=== PATIENT | male | born 1940 | race Caucasian/White ===

== ENCOUNTER 2017-05-23 02:23 | Inpatient (IN) | payer MEDICARE, MEDICAID ==
[2017-05-23] VITALS (9 sets, daily range): BP systolic 122–159; BP diastolic 51–87; PULSE 78–96; RESP 16–24; O2SAT 96–100
[~2017-05-23] VITALS: Ht 175.3 cm; Wt 77.8 kg
[2017-05-23] MEDS ORDERED: 0.9% Sodium Chloride 1,000 ML IV ONE ×2 (02:46→07:45)
--- NOTE | 2017-05-23 02:46 | ED.REPORT ---
HPI-Abd Pain M 40 and Over Date of Service May 23, 2017 ED Provider: Christopher Richardson MD The pt is a 77 y/o male w/ a hx of hemoptysis, dementia, HTN, and type 2 diabetes presenting to the ED complaining of hematemesis tonight. [facility] after an episode of coffee-ground emesis. He was unaware of that and remains unaware of it. He denies abdominal pain nausea vomiting or any other complaint. He appears to be bed ridden but He reports still being able to ambulate on his own. Denies abdominal pain or nausea. Nursing Notes Stated Complaint: VOMITING Chief Complaint: Male Abdominal Pain Nursing Notes Reviewed: Yes Allergies: Coded Allergies: No Known Allergies (Unverified , 05/23/17) General Time Seen by MD: 02:45 Transferred From: group home Chief Complaint Other (Hematemesis ) Patient unaware of hematemesis and denies pain or other complaints Hx Obtained From: Patient, Framing Machine Tender ([facility]itentiary staff) Unable to Obtain Hx: Mental status Arrived By: Ambulance Sudden in Onset?: Yes Onset Occurred: 1 week ago Recent Healthcare: No recent doctor visit, No recent hospitalization Similar Sx Previous: No Past Medical History Past Medical History Hemoptysis HTN Type 2 diabetes Benign prostatic hyperplasia Dementia UTI Osteoarthritis Past Surgical History None reported Social History None reported Other Social History: Lives in [facility] Ambulatory Status Independent Review of Systems GI: Reports: Hematemesis, Denies: Abdominal pain, Nausea Complete sys rev & neg: except as marked. Physical Exam Initial Vital Signs Vital Signs (First) Date Time Temp Pulse Resp B/P Pulse Ox O2 Delivery O2 Flow Rate FiO2 05/23/17 02:34 36 96 16 144/60 96 Room Air Initial VS: Reviewed General/Constitutional: Awake, Alert, No acute distress Pt is wearing an incontinence garment Respiratory / Chest: Atraumatic, Breath sounds NL, Breath sounds = bilat, No respiratory distress Cardiovascular: Heart rate NL, Heart sounds NL Heart Rate / Rhythm: Positive: Irregular rhythm (and slow ) Lower Ext Edema: Positive: Bilateral 2+ Abdomen: Atraumatic, Soft, Non-tender Back: Atraumatic, Full range of motion Head / Eyes: Atraumatic, Normocephalic ENT: Airway patent Mouth: Positive: Mucous membranes dry Skin: Atraumatic, Color NL, No rash, Warm, Dry Neurologic: Oriented X3, Speech NL Upper Extremity / MS: Atraumatic, Full range of motion Lower Extremity / Pelvis / MS: Atraumatic, Full range of motion Psychiatric: Affect NL, Mood NL Interpretation & Diagnostics Lab Results Interpretation Result Diagram: 05/23/17 0300 05/23/17 0300 Test 05/23/17 03:00 05/23/17 03:50 White Blood Count 16.6th/mm3 (3.8-10.1) Red Blood Count 4.56mil/mm3 (4.40-5.80) Hemoglobin 14.7g/dL (13.8-17.2) Hematocrit 42.4% (41.0-50.0) Mean Corpuscular Volume 93.0fL (81-100) Mean Corpuscular Hemoglobin 32.2pg (27.0-35.0) Mean Corpuscular Hemoglobin Concent 34.7% (32.0-37.0) Red Cell Distribution Width 12.9% (12.3-15.4) Platelet Count 205bil/L (150-400) Neutrophils (%) (Auto) 90.0% (40-74) Lymphocytes (%) (Auto) 4.6% (14-46) Monocytes (%) (Auto) 4.2% (4-12) Eosinophils (%) (Auto) 0.7% (0-5) Basophils (%) (Auto) 0.1% (0-3) Prothrombin Time 10.8sec (8.1-12.5) Prothromb Time International Ratio 1.01ratio Sodium Level 139mEq/L (134-144) Potassium Level 4.5mEq/L (3.5-5.2) Chloride Level 97mEq/L (97-108) Carbon Dioxide Level 25mmol/L (18-29) Blood Urea Nitrogen 12mg/dL (8-27) Creatinine 0.62mg/dL (0.76-1.27) Estimat Glomerular Filtration Rate 134mL/min (>59) Glucose Level 196mg/dL (60-99) Calcium Level 9.5mg/dL (8.5-10.1) Magnesium Level 1.9mg/dL (1.6-2.6) Total Bilirubin 0.5mg/dL (0.0-1.2) Aspartate Amino Transf (AST/SGOT) 25U/L (0-50) Alanine Aminotransferase (ALT/SGPT) 17U/L (0-44) Alkaline Phosphatase 96U/L (25-160) Total Protein 8.1g/dL (6.4-8.4) Albumin 4.0g/dL (3.4-5.0) Lipase 49U/L (13-60) Urine Color Yellow (YELLOW) Urine Appearance Cloudy (CLEAR,HAZY) Urine pH 7.0 (5.0-8.0) Urine Specific Wann 1.015 (1.003-1.035) Urine Protein 30mg/dL (NEG,TRACE) Urine Glucose (UA) Negativemg/dL (NEGATIVE) Urine Ketones 15mg/dL (NEGATIVE) Urine Occult Blood Moderate (NEGATIVE) Urine Nitrite Positive (NEGATIVE) Urine Bilirubin Negative (NEGATIVE) Urine Urobilinogen Normalmg/dL (NORMAL) Urine Leukocyte Esterase Large (NEGATIVE) Urine RBC 3-10/hpf (0-2) Urine WBC Packed/hpf (0-5) Urine Epithelial Cells Few/hpf (NONE-MOD) Urine Crystals None seen (NONE SEEN) Urine Bacteria Many/hpf (NONE-FEW) Urine Hyaline Casts None/lpf (NONE) Urine Granular Casts None seen (NONE SEEN) Urine Waxy Casts None seen (NONE SEEN) Urine Red Blood Cell Casts None seen (NONE SEEN) Urine White Blood Cell Casts None seen (NONE SEEN) Urine Mucus None seen (None Seen) Urine Trichomonas None seen (NONE SEEN) Urine Yeast None (NONE SEEN) Urinalysis Comment None Urine Culture Reflexed Indicated ECG Interpretation ECG Interpretation: 1st degree AVB Rate 99 Sinus tachycardia Atrial premature complex Prolonged KS interval Inferior infarct old Time: 03:20 Interpreted by: ED physician X-Ray Chest Interpretation Chest Xray Interpretation: Impression: No acute findings View: Portable, 1 view Interpretation / Wet Read by: Wet read ED physician Re-Eval/Medical Decision Med Decision/Clinical Course Elderly demented man presents after an episode hematemesis. Hemoglobin is stable and vitals are stable. CT shows some ileus. NG tube placed to decompress. Discussed with GI. Admitted for serial hemoglobin and transfusion if needed. is en route. Transported in stable condition. He does have evidence of UTI and should have antibiotics while he is here. He is afebrile and asymptomatic, but his urine is packed with white cells. Culture is pending. Source of Hx: Old records Time of Eval: 05:14 Re-Evaluation/Progress Note: Pt rechecked. Informed pt of need for admission. Pt understands and agrees with plan for admission. All questions addressed. Counseled Regarding: Diagnosis, Lab results, Need for admission Discharge & Departure Primary Impression: Upper gastrointestinal bleed Additional Impression: Urinary tract infection Disposition: ADMITTED TO HOSPITAL Vital Signs - All Vital Signs Date Time Temp Pulse Resp B/P Pulse Ox O2 Delivery O2 Flow Rate FiO2 05/23/17 06:51 36.8 88 18 128/58 97 Room Air 05/23/17 05:09 36.7 88 20 153/62 98 Room Air 05/23/17 03:51 91 20 135/51 97 Room Air 05/23/17 02:34 36 96 16 144/60 96 Room Air )( All Prior VS Reviewed: Yes Condition: Stable Referrals: Elias Tavera MD (PCP) Scribe Attestation Portions of this note were transcribed by Efren Sanchez. I, Dr. Richardson personally performed the history, physical exam and medical decision-making; I reviewed and confirmed the accuracy of the information in the transcribed note. Signed by : Bc Bob, 05/23/17 and 0433. copies to: Elias Tavera MD, Christopher W MD May 23, 2017 02:46 Efren Sanchez May 23, 2017 04:32
[2017-05-23] MEDS ORDERED: Pantoprazole 4 mg/mL 10 mL Inj IVPUSH ONE (02:50)
[2017-05-23] MEDS ORDERED: Octreotide Inj 500 MCG in 0.9% Sodium Chloride 100 ML IV ONE (02:50)
[2017-05-23 03:44] LABS: BASOPHILS % (AUTO) 0.1 % (0-3); EOSINOPHILS % (AUTO) 0.7 % (0-5); MONOCYTES % (AUTO) 4.2 % (4-12); Mean Corpuscular Hemoglobin 32.2 pg (27.0-35.0); Platelet Count 205 bil/L (150-400)
[2017-05-23 04:06] LABS: INR 1.01 ratio
[2017-05-23 04:11] LABS: Magnesium 1.9 mg/dL (1.6-2.6)
[2017-05-23] MEDS ORDERED: Iohexol 300 mg/mL 30 mL Inj PO ONE (04:40)
[2017-05-23 04:51] LABS: APPEARANCE,URINE CLOUDY (CLEAR,HAZY); COLOR,URINE YELLOW (YELLOW)
[2017-05-23 04:52] LABS: OCCULT BLOOD,URINE MODERATE (NEGATIVE); UROBILINOGEN,URINE NORMAL (NORMAL)
[2017-05-23] MEDS ORDERED: Polyethylene Glycol (PEG) 17 Gm Powder PO PRN (07:40)
[2017-05-23] MEDS ORDERED: Alum-Mag Hydrox-Simeth 30 mL Suspension PO PRN (07:40)
--- NOTE | 2017-05-23 08:20 | DRSVH ---
PROCEDURE: CT ABDOMEN AND PELVIS WITH CONTRAST ([id number]) INDICATIONS: abdo pain, hematemesis TECHNIQUE: After the administration of intravenous contrast, 5 mm thick sections acquired from the diaphragm to the symphysis. 5 mm coronal and sagittal reformats were acquired. For radiation dose reduction, the following was used: automated exposure control, adjustment of mA and/or kV according to patient siz e. COMPARISON: None. FINDINGS: Image quality: Excellent. ABDOMEN: Lung bases: Lung bases are clear. Pleural-based diaphragmatic surface calcifications are present. H eart size is normal. Solid organs: Liver and spleen are normal in size and enhancement. Gallbladder is within normal grace its. Biliary system is non dilated. Pancreas enhances normally. No adrenal nodules. Kidneys demon strate normal size and enhancement, without hydronephrosis. Peritoneum and bowel: Bowel loops demonstrate normal wall thickness stomach is distended and proxima l small bowel loops are slightly prominent in size but obstruction focus is not appreciated. o free f luid or air. Normal appendix is present. Nodes and vessels: No retroperitoneal or mesenteric adenopathy by size criteria. Aorta and inferior vena cava are normal in size. Miscellaneous: No ventral hernias. PELVIS: Genitourinary: Bladder wall thickness is increased and there is a moderately enlarged prostate. Miscellaneous: No inguinal hernias or adenopathy. Bones: No suspicious bony lesions. No vertebral body compression fractures. IMPRESSION: 1. Distended stomach and prominent proximal small bowel loops. Appearance would suggest possible ileu s versus partial small bowel obstruction but cause is not identified. 2. Bladder wall hypertrophy but could be secondary to an enlarged prostate. 3. Atherosclerosis. Calcifications of pleura suggesting possible old asbestos exposure. Dictated by: Grover Ross M.D. on 05/23/2017 at 8:12 this report corresponds to the findings of the preliminary NSR report. Approved by: Grover Ross M.D. on 05/23/2017 at 8:18
--- NOTE | 2017-05-23 08:23 | DRSVH ---
PROCEDURE: X-RAY CHEST ONE VIEW, PORTABLE ([id number]) INDICATIONS: ugi bleed TECHNIQUE: One view of the chest was acquired. COMPARISON: None. FINDINGS: Surgical changes and devices: asbestos remover leads are seen over the chest. Lungs and pleura: No pleural effusions or pneumothorax. Density is thought to be pleural calcificati on are seen on hemidiaphragms and probably account for the density in the left midlung field. The nod ule in the left midlung field cannot be completely excluded as the density is not seen in 2011. Lungs are clear. Mediastinum: Mediastinal contours appear normal. Heart size is normal. Bones and chest wall: No suspicious bony lesions. Overlying soft tissues appear unremarkable. IMPRESSION: Acute disease is not seen. Changes to suggest a listhesis exposure. Question of nodule versus pleural plaque in the left midlung field. CT scan of the thorax without con trast could resolve this. Dictated by: Grover Ross M.D. on 05/23/2017 at 8:20 Approved by: Grover Ross M.D. on 05/23/2017 at 8:21
[2017-05-23] MEDS: cefTRIAXone Inj 1,000 MG in Dextrose 5% Minibag Plus 50 ML IV SCH (09:21)
[2017-05-23] MEDS: Ondansetron 2 mg/mL 2 mL Inj IVPUSH PRN ×2 (09:26→23:46)
[2017-05-23] MEDS: Pantoprazole Inj 80 MG in 0.9% Sodium Chloride 80 ML IV SCH ×2 (10:28→18:08)
[2017-05-23] MEDS ORDERED: DEXT1CAP3 PO (12:06)
[2017-05-23] MEDS ORDERED: TAMS0.4C98 PO (12:06)
[2017-05-23] MEDS ORDERED: MORPHINE 20 MG/ML PO (12:08)
[2017-05-23] MEDS ORDERED: SENN-133 PO (12:09)
[2017-05-23] MEDS ORDERED: DOCU-41 PO (12:09)
[2017-05-23] MEDS ORDERED: QUET50TA55 PO ×2 (12:10→12:12)
[2017-05-23] MEDS ORDERED: QUET100T69 PO (12:10)
[2017-05-23] MEDS ORDERED: MIRT15TA PO (12:11)
--- NOTE | 2017-05-23 13:04 | PCM.HPMED ---
Subjective Date of Service May 23, 2017 Primary Provider: Admitting Physician: James Rey MD Primary Care Physician: Elias Tavera MD Attending Physician: James Rey MD Admit Status: From the Emergency Department, Full Admit, Admit to [place] Team Chief Complaint: Episode of vomiting of dark matter/one day History of Present Illness: History limited due to patient's baseline dementia. No family member at bedside. History obtained from ED physician and [facility] chart per ED note "The pt is a 77 y/o male w/ a hx of hemoptysis, dementia, HTN, and type 2 diabetes presenting to the ED complaining of hematemesis tonight. He was sent by [facility] staff after an episode of coffee-ground emesis. He was unaware of that and remains unaware of it. He denies abdominal pain nausea vomiting or any other complaint. He appears to be bed ridden but He reports still being able to ambulate on his own. Denies abdominal pain or nausea." Patient transferred from [facility] ED course : Initial BP 144/60, HR 96, afebrile. Initial WBC 16.6. Hemoglobin 14.7. Urinalysis with pyuria. occult Blood from vomitus positive GI consulted ,NG tube inserted but later patient removed it. Reportedly Only 100 ml brown content . Octreotide Given. Protonix Drip Started. Patient did not have any further episode of vomiting in hospital but per ED physician patient had dark matter on arrival CT abdomen shows Distended stomach and prominent proximal small bowel loops. Appearance would suggest possible ileus versus partial small bowel obstruction Patient has a signed POLST which states DNR/DNI comfort care only. do not hospitalize Review of Systems: Unable to obtain due to patient's dementia Allergies Coded Allergies: No Known Allergies (Unverified , 05/23/17) Home Medications Tamsulosin 0.8 mg by mouth daily Morphine 20 mg/ml . 5 mg 3 times daily Senna 8.6g Colace 100 mg by mouth twice a day Neudexta 20-10mg 2 times daily Seroquel 100 mg by mouth at bedtime Seroquel 50 mg by mouth daily Remeron 50 mg daily at bedtime kristy-opth 2 drops to right eye every 2h as needed Seroquel 50 mg by mouth daily in am PMH per chart review Hemoptysis HTN Type 2 diabetes Benign prostatic hyperplasia Dementia UTI Osteoarthritis Surgical History None reported in chart Family History Unable to obtain at this time due to patient's mental status Exam Vital Signs Vital Sign - Last Date Time Temp Pulse Resp B/P Pulse Ox O2 Delivery O2 Flow Rate FiO2 05/23/17 08:28 36.9 91 16 122/67 96 Room Air Intake and Output 05/22/17 05/22/17 05/23/17 Cumulative From/Thru 15:00 23:00 07:00 05/23/17 02:34 - 05/23/17 03:52 Intake Total 1000 ml 1000 ml Balance 1000 ml 1000 ml Intake IV Total 1000 ml 1000 ml Exam Gen. patient is lying comfortably in hospital bed HEENT: Head is normocephalic atraumatic, Pupils equal and reactive, extraocular movements intact, Lungs clear to auscultation bilaterally Heart regular rate and rhythm without murmurs gallops or rubs Abdomen soft nontender without hepatosplenomegaly. Slight epigastric distention Extremities pulses are present dorsalis pedis posterior tibialis and radial. Skin is warm and dry there are no rashes, Psych alert but not oriented 3 Neuro cranial nerves II through XII are grossly intact Lymph: There is no lymphadenopathy appreciated in the cervical supra infraclavicular regions : no david Lab and Diagnostics Result Diagram: 05/23/17 0300 05/23/17 0300 X-Rays, CTs and MRIs PROCEDURE: CT ABDOMEN AND PELVIS WITH CONTRAST ([id number]) INDICATIONS: abdo pain, hematemesis IMPRESSION: 1. Distended stomach and prominent proximal small bowel loops. Appearance would suggest possible ileus versus partial small bowel obstruction but cause is not identified. 2. Bladder wall hypertrophy but could be secondary to an enlarged prostate. 3. Atherosclerosis. Calcifications of pleura suggesting possible old asbestos exposure. Dictated by: Grover Ross M.D. on 05/23/2017 at 8:12 this report corresponds to the findings of the preliminary NSR report. Assessment & Plan 77 y/o male w/ a hx of hemoptysis, dementia, HTN, and type 2 diabetes presenting to to emergency room due to an episode of vomiting of dark matter # Hematemesis,acute,poa -NG tube inserted for diagnostic purpose in ED and reportedly < 100ml brown to dark matter -Probably due to gastritis -Continue Protonix drip -NS at 100ml/h -Spoke with GI, will manage conservatively given no significant bleeding on NG- tube -Patient has a signed POLST which states DNR/DNI comfort care only. do not hospitalize # Suspected partial small bowel obstruction,acute,poa -Patient removed NG tube -will start clear liquid diet and advance as tolerated -Serial abdominal exam # Urinary tract infection,acute,poa -WBC 16.6. Urinalysis with pyuria. Urine culture pending. -Ceftriaxone started # Hypertension -Continue medications # Diabetes -Continue medications ppx:ppi ,avoid AC due to suspected GI bleeding Patient admitted under inpatient status with expected length of stay > 2 midnights for severity of present symptoms, complexities of treatment plan and risk for adverse events Patient has a signed POLST which states DNR/DNI comfort care only. do not hospitalize Resuscitation Status: DNR/DNI:Do Not Resuscitate/Intubate copies to: Elias Tavera MD, Melaku MD May 23, 2017 13:04
[2017-05-23] MEDS: 0.9% Sodium Chloride 1,000 ML IV SCH ×2 (15:16→18:09)
[2017-05-23] MEDS: NUEDEXTA PO SCH (20:30)
[2017-05-23] MEDS: Morphine 2 mg/mL 5 mL Oral Solution PO SCH (20:30)
[2017-05-24] VITALS (9 sets, daily range): BP systolic 133–153; BP diastolic 61–73; PULSE 71–84; RESP 16–18; O2SAT 95–98
[2017-05-24] MEDS: 0.9% Sodium Chloride 1,000 ML IV SCH ×2 (03:56→14:35)
[2017-05-24 07:14] LABS: BASOPHILS % (AUTO) 0.1 % (0-3); EOSINOPHILS % (AUTO) 1.2 % (0-5); MONOCYTES % (AUTO) 11.1 % (4-12); Mean Corpuscular Hemoglobin 31.5 pg (27.0-35.0); Mean Corpuscular Volume 92.7 fL (81-100); NEUTROPHILS % (AUTO) 75.3 % (40-74); Platelet Count 225 bil/L (150-400)
[2017-05-24 07:36] LABS: Magnesium 1.8 mg/dL (1.6-2.6)
[2017-05-24] MEDS: cefTRIAXone Inj 1,000 MG in Dextrose 5% Minibag Plus 50 ML IV SCH (08:25)
[2017-05-24] MEDS: NUEDEXTA PO SCH ×2 (08:30→20:30)
[2017-05-24] MEDS: Morphine 2 mg/mL 5 mL Oral Solution PO SCH ×3 (08:30→20:15)
[2017-05-24] MEDS: Pantoprazole Inj 80 MG in 0.9% Sodium Chloride 80 ML IV SCH ×2 (09:38→13:40)
--- NOTE | 2017-05-24 10:45 | PCM.PNMED ---
Subjective Date of Service May 24, 2017 Subjective Patient removed his NG tube yesterday after only 100 mL drain of brownish matter ( reportedly fecal looking per RN) . He was started on Clears but he vomited overnight and NG tube reinserted and used a sitter to keep NGT.had 30ml brown matter in suction container this am. Repositioned NG tube but no further output . . Patient eventually removed NG tube himself. Exam Vital Signs Vital Sign - Last Date Time Temp Pulse Resp B/P Pulse Ox O2 Delivery O2 Flow Rate FiO2 05/24/17 10:25 37.2 80 16 143/67 97 Room Air Intake and Output 05/23/17 05/23/17 05/24/17 Cumulative From/Thru 15:00 23:00 07:00 05/23/17 02:34 - 05/24/17 04:30 Intake Total 1500 ml 0 ml 2500 ml Output Total 150 ml 150 ml Balance 1500 ml -150 ml 2350 ml Intake Oral 200 ml 0 ml 200 ml IV Total 1300 ml 2300 ml Output Gastric Drainage Total 50 ml 50 ml Emesis 100 ml 100 ml # Voids 1 2 3 # Bowel Movements 0 0 Exam Gen. patient is lying comfortably in hospital bed HEENT: Head is normocephalic atraumatic, Pupils equal and reactive, extraocular movements intact, Lungs clear to auscultation bilaterally Heart regular rate and rhythm without murmurs gallops or rubs Abdomen soft nontender without hepatosplenomegaly. Slight epigastric distention Extremities pulses are present dorsalis pedis posterior tibialis and radial. Skin is warm and dry there are no rashes, Psych alert but not oriented 3 Neuro cranial nerves II through XII are grossly intact Lymph: There is no lymphadenopathy appreciated in the cervical supra infraclavicular regions : no david IVs and Medications Medications Reviewed: Medications were reviewed in detail Lab and Diagnostics Result Diagram: 05/24/1761505/24/17615 X-Rays, CTs and MRIs PROCEDURE: CT ABDOMEN AND PELVIS WITH CONTRAST ([id number]) INDICATIONS: abdo pain, hematemesis IMPRESSION: 1. Distended stomach and prominent proximal small bowel loops. Appearance would suggest possible ileus versus partial small bowel obstruction but cause is not identified. 2. Bladder wall hypertrophy but could be secondary to an enlarged prostate. 3. Atherosclerosis. Calcifications of pleura suggesting possible old asbestos exposure. Dictated by: Grover Ross M.D. on 05/23/2017 at 8:12 this report corresponds to the findings of the preliminary NSR report. Assessment & Plan 77 y/o male w/ a hx of hemoptysis, dementia, HTN, and type 2 diabetes presenting to to emergency room due to an episode of vomiting of dark matter # Reported Hematemesis,acute,poa -NG tube inserted for diagnostic purpose in ED and reportedly < 100ml brown to dark matter -Probably due to gastritis -Switch Protonix drip IV twice a day -Continue NS at 100ml/h -Spoke with GI, will manage conservatively given no significant bleeding on NG- tube -Patient has a signed POLST which states DNR/DNI comfort care only. do not hospitalize # Suspected partial small bowel obstruction vs ileus ,acute,poa -Patient removed NG tube -Abdomen soft ,will start clear liquid diet and advance as tolerated -Serial abdominal exam,will do XR abd # Urinary tract infection,acute,poa -WBC 16.6. Urinalysis with pyuria. Urine culture >100,000 GNRs -Continue Ceftriaxone #Depression -Continue Remeron #Dementia -Continue Seroquel ppx:ppi ,avoid AC due to suspected GI bleeding Patient admitted under inpatient status with expected length of stay > 2 midnights for severity of present symptoms, complexities of treatment plan and risk for adverse events Patient has a signed POLST which states DNR/DNI comfort care only. do not hospitalize Patient can be discharged back to [facility] tomorrow on comfort care if no further vomiting and tolerates diet VTE Mechanical Devices: Intermittant Pneumatic CD Resuscitation Status: DNR/DNI:Do Not Resuscitate/Intubate James Rey MD May 24, 2017 10:45
[2017-05-24] MEDS: Pantoprazole 4 mg/mL 10 mL Inj IVPUSH SCH (20:14)
[2017-05-25] VITALS (9 sets, daily range): BP systolic 109–184; BP diastolic 47–86; PULSE 68–84; RESP 18–22; O2SAT 95–99
[2017-05-25] MEDS: 0.9% Sodium Chloride 1,000 ML IV SCH (07:52)
--- NOTE | 2017-05-25 07:56 | DRSVH ---
PROCEDURE: X-RAY ABDOMEN, ONE VIEW ([id number]) INDICATIONS: vomiting ,?SBO TECHNIQUE: One view of the abdomen acquired. COMPARISON: None. FINDINGS: Surgical changes and devices: None. Bowel: Moderate gaseous distention of the stomach is noted. Gastric outlet obstruction cannot be excl uded. Soft tissues: No suspicious abdominal calcifications. Visualized solid organ contours appear normal in size. Bones: No suspicious bony lesions. IMPRESSION: Moderately distended stomach. Gastric outlet obstruction cannot be excluded. Dictated by: Evelia Verde MD, PhD on 05/25/2017 at 7:53 Approved by: Evelia Verde MD, PhD on 05/25/2017 at 7:54
[2017-05-25] MEDS: NUEDEXTA PO SCH ×2 (08:30→20:30)
[2017-05-25] MEDS: Pantoprazole 4 mg/mL 10 mL Inj IVPUSH SCH ×2 (09:55→17:28)
[2017-05-25] MEDS: cefTRIAXone Inj 1,000 MG in Dextrose 5% Minibag Plus 50 ML IV SCH (09:59)
[2017-05-25] MEDS: Morphine 2 mg/mL 5 mL Oral Solution PO SCH ×3 (10:02→20:55)
--- NOTE | 2017-05-25 12:09 | PCM.PNMED ---
Subjective Date of Service May 25, 2017 Subjective Patient seen and examined. Not very interactive. Did not open his eyes. Just said "yes, what do you want". Vitals stable. Exam Vital Signs Vital Sign - Last Date Time Temp Pulse Resp B/P Pulse Ox O2 Delivery O2 Flow Rate FiO2 05/25/17 10:05 70 05/25/17 07:57 36.7 20 133/62 96 Room Air Intake and Output 05/24/17 05/24/17 05/25/17 Cumulative From/Thru 15:00 23:00 07:00 05/23/17 02:34 - 05/25/17 06:38 Intake Total 2204 ml 761 ml 5465 ml Output Total 150 ml Balance 2204 ml 761 ml 5315 ml Intake Oral 100 ml 300 ml IV Total 2204 ml 661 ml 5165 ml Output Gastric Drainage Total 50 ml Emesis 100 ml # Voids 6 9 # Bowel Movements 0 Exam Gen. patient is lying comfortably in hospital bed HEENT: Head is normocephalic atraumatic, Lungs clear to auscultation bilaterally Heart regular rate and rhythm without murmurs gallops or rubs Abdomen soft nontender without hepatosplenomegaly. Slight epigastric distention Extremities pulses are present dorsalis pedis posterior tibialis and radial. Skin is warm and dry there are no rashes, Psych alert but not oriented 3 : no david Lab and Diagnostics Result Diagram: 05/24/1716 05/24/17615 X-Rays, CTs and MRIs PROCEDURE: CT ABDOMEN AND PELVIS WITH CONTRAST ([id number]) INDICATIONS: abdo pain, hematemesis IMPRESSION: 1. Distended stomach and prominent proximal small bowel loops. Appearance would suggest possible ileus versus partial small bowel obstruction but cause is not identified. 2. Bladder wall hypertrophy but could be secondary to an enlarged prostate. 3. Atherosclerosis. Calcifications of pleura suggesting possible old asbestos exposure. Dictated by: Grover Ross M.D. on 05/23/2017 at 8:12 this report corresponds to the findings of the preliminary NSR report. Assessment & Plan 77 y/o male w/ a hx of hemoptysis, dementia, HTN, and type 2 diabetes presenting to to emergency room due to an episode of vomiting of dark matter # Reported Hematemesis,acute,poa -NG tube inserted for diagnostic purpose in ED and reportedly < 100ml brown to dark matter -Probably due to gastritis -Switch Protonix drip IV twice a day -Continue NS at 100ml/h -Spoke with GI, will manage conservatively given no significant bleeding on NG- tube -Patient has a signed POLST which states DNR/DNI comfort care only. do not hospitalize # Suspected partial small bowel obstruction vs ileus ,acute,poa -Patient removed NG tube -Abdomen soft ,will start clear liquid diet and advance as tolerated -XR abd : as noted above. - continue to monitor, bowel regimen # Urinary tract infection,acute,poa -WBC 16.6. Urinalysis with pyuria. Urine culture >100,000 GNRs -Continue Ceftriaxone inpatient #Depression -Continue Remeron #Dementia -Continue Seroquel ppx:ppi ,avoid AC due to suspected GI bleeding Patient admitted under inpatient status with expected length of stay > 2 midnights for severity of present symptoms, complexities of treatment plan and risk for adverse events Patient has a signed POLST which states DNR/DNI comfort care only. do not hospitalize [facility] if no further vomiting and tolerates diet VTE Mechanical Devices: Intermittant Pneumatic CD Resuscitation Status: DNR/DNI:Do Not Resuscitate/Intubate Time spent 35 mins Tommy Rothman MD May 25, 2017 12:09
[2017-05-25] MEDS ORDERED: Glucose 40% Oral Gel 15 Gm Tube PO PRN (13:50)
[2017-05-26] MEDS: 0.9% Sodium Chloride 1,000 ML IV SCH ×2 (00:24→16:11)
[2017-05-26 05:55] LABS: BASOPHILS % (AUTO) 0.2 % (0-3); EOSINOPHILS % (AUTO) 4.6 % (0-5); MONOCYTES % (AUTO) 7.1 % (4-12); Mean Corpuscular Volume 88.7 fL (81-100); NEUTROPHILS % (AUTO) 77.7 % (40-74); Platelet Count 191 bil/L (150-400)
[2017-05-26 06:05] VITALS: BP 176/78; PULSE 82; RESP 16; O2SAT 96
[2017-05-26] MEDS: NUEDEXTA PO SCH ×2 (08:30→20:30)
[2017-05-26] MEDS: cefTRIAXone Inj 1,000 MG in Dextrose 5% Minibag Plus 50 ML IV SCH (09:20)
[2017-05-26] MEDS: Morphine 2 mg/mL 5 mL Oral Solution PO SCH ×3 (09:20→22:03)
[2017-05-26 09:24] VITALS: BP 137/67; PULSE 101; RESP 16; O2SAT 93
[2017-05-26 12:16] VITALS: BP 110/61; PULSE 78; RESP 18; O2SAT 98
--- NOTE | 2017-05-26 12:33 | PCM.PNMED ---
Subjective Date of Service May 26, 2017 Subjective Patient seen and examined. Responds to questions, but not oriented. Vitals stable. Exam Vital Signs Vital Sign - Last Date Time Temp Pulse Resp B/P Pulse Ox O2 Delivery O2 Flow Rate FiO2 05/26/17 12:16 36.8 78 18 110/61 98 Room Air Intake and Output 05/25/17 05/25/17 05/26/17 Cumulative From/Thru 15:00 23:00 07:00 05/23/17 02:34 - 05/26/17 06:38 Intake Total 2560 ml 933 ml 8958 ml Output Total 1279 ml 1429 ml Balance 1281 ml 933 ml 7529 ml Intake Oral 1905 ml 150 ml 2355 ml IV Total 655 ml 783 ml 6603 ml Output Urine Total 1279 ml 1279 ml Gastric Drainage Total 50 ml Emesis 100 ml # Voids 2 11 # Bowel Movements 0 0 0 Exam Gen. patient is lying comfortably in hospital bed HEENT: Head is normocephalic atraumatic, Lungs clear to auscultation bilaterally Heart regular rate and rhythm without murmurs gallops or rubs Abdomen soft nontender without hepatosplenomegaly. Slight epigastric distention Extremities pulses are present dorsalis pedis posterior tibialis and radial. Skin is warm and dry there are no rashes, Psych alert but not oriented 3 : no david Lab and Diagnostics Result Diagram: 05/26/17 0520 05/26/17 0520 X-Rays, CTs and MRIs PROCEDURE: CT ABDOMEN AND PELVIS WITH CONTRAST ([id number]) INDICATIONS: abdo pain, hematemesis IMPRESSION: 1. Distended stomach and prominent proximal small bowel loops. Appearance would suggest possible ileus versus partial small bowel obstruction but cause is not identified. 2. Bladder wall hypertrophy but could be secondary to an enlarged prostate. 3. Atherosclerosis. Calcifications of pleura suggesting possible old asbestos exposure. Dictated by: Grover Ross M.D. on 05/23/2017 at 8:12 this report corresponds to the findings of the preliminary NSR report. Assessment & Plan 77 y/o male w/ a hx of hemoptysis, dementia, HTN, and type 2 diabetes presenting to to emergency room due to an episode of vomiting of dark matter # Reported Hematemesis,acute,poa -NG tube inserted initially for diagnostic purpose in ED and reportedly < 100ml brown to dark matter -Probably due to gastritis -Switch Protonix drip IV twice a day -Continue NS at 100ml/h - Hgb stable -as per GI, will manage conservatively given no significant bleeding on NG-tube -Patient has a signed POLST which states DNR/DNI comfort care only. do not hospitalize # Suspected partial small bowel obstruction vs ileus ,acute,poa -Patient removed NG tube -Abdomen soft ,will start clear liquid diet and advance as tolerated -XR abd : as noted above. - continue to monitor, bowel regimen # Urinary tract infection,acute,poa -WBC 16.6>10.1>13.9 . Urinalysis with pyuria. Urine culture >100,000 GNRs -Continue Ceftriaxone inpatient - urine culture susceptibilities pending #Depression -Continue Remeron #Dementia -Continue Seroquel ppx:ppi ,avoid AC due to suspected GI bleeding Dispo: Patient has a signed POLST which states DNR/DNI comfort care only. do not hospitalize Patient can be discharged back to [facility] tomorrow on comfort care if no further vomiting and tolerates diet VTE Mechanical Devices: Intermittant Pneumatic CD Resuscitation Status: DNR/DNI:Do Not Resuscitate/Intubate Time spent 35mins Tommy Rothman MD May 26, 2017 12:33
[2017-05-26] MEDS: Pantoprazole 4 mg/mL 10 mL Inj IVPUSH SCH ×2 (13:28→22:02)
[2017-05-26 22:36] VITALS: BP 115/66; PULSE 78; RESP 18; O2SAT 96
[2017-05-27] MEDS: 0.9% Sodium Chloride 1,000 ML IV SCH (03:55)
[2017-05-27 05:14] VITALS: BP 117/61; PULSE 72; RESP 17; O2SAT 98
[2017-05-27] MEDS: cefTRIAXone Inj 1,000 MG in Dextrose 5% Minibag Plus 50 ML IV SCH (07:48)
[2017-05-27] MEDS: Morphine 2 mg/mL 5 mL Oral Solution PO SCH ×2 (07:49→14:30)
[2017-05-27] MEDS: Pantoprazole 4 mg/mL 10 mL Inj IVPUSH SCH (07:51)
[2017-05-27 08:03] LABS: BASOPHILS % (AUTO) 0.2 % (0-3); EOSINOPHILS % (AUTO) 9.3 % (0-5); MONOCYTES % (AUTO) 8.4 % (4-12); Mean Corpuscular Hemoglobin 31.8 pg (27.0-35.0); Mean Corpuscular Volume 92.1 fL (81-100); NEUTROPHILS % (AUTO) 60.6 % (40-74); Platelet Count 185 bil/L (150-400)
[2017-05-27] MEDS: NUEDEXTA PO SCH (08:30)
--- NOTE | 2017-05-27 11:13 | PCM.DIMED ---
Discharge Instructions Date of Service May 27, 2017 Dates of Hospitalization May 23, 2017 at 07:33 Discharge Diagnosis Discharge Diagnosis partial SBO dementia Medication Instructions Additional med instructions Bowel regimen Diet Discharge Diet: No restrictions Patient Instructions Follow-up with PCP in: 2 weeks Attending's Statement Patient is on comfort care. Tommy Rothman MD May 27, 2017 11:13
[2017-05-27] MEDS ORDERED: SENN-133 PO (11:19)
[2017-05-27] MEDS ORDERED: POLY17PO6 PO (11:19)
[2017-05-27 12:45] VITALS: BP 105/43; PULSE 74; RESP 18; O2SAT 95
--- NOTE | 2017-05-27 15:29 | PCM.DC.MED ---
Discharge Summary Date of Service May 27, 2017 Dates of Hospitalization Date of Hospital Admission May 23, 2017 at 07:33 Date of Discharge: May 27, 2017 Providers: Admitting Physician: James Rey MD Primary Care Physician: Elias Tavera MD Attending Physician: Tommy Marinelli MD Diagnosis at Time of Discharge Diagnosis at Time of Discharge partial SBO dementia Procedures XRay, CTs & MRIs PROCEDURE: CT ABDOMEN AND PELVIS WITH CONTRAST ([id number]) INDICATIONS: abdo pain, hematemesis IMPRESSION: 1. Distended stomach and prominent proximal small bowel loops. Appearance would suggest possible ileus versus partial small bowel obstruction but cause is not identified. 2. Bladder wall hypertrophy but could be secondary to an enlarged prostate. 3. Atherosclerosis. Calcifications of pleura suggesting possible old asbestos exposure. Dictated by: Grover Ross M.D. on 05/23/2017 at 8:12 this report corresponds to the findings of the preliminary NSR report. Brief History History limited due to patient's baseline dementia. No family member at bedside. History obtained from ED physician and [facility] chart per ED note "The pt is a 77 y/o male w/ a hx of hemoptysis, dementia, HTN, and type 2 diabetes presenting to the ED complaining of hematemesis tonight. He was sent [facility] staff after an episode of coffee-ground emesis. He was unaware of that and remains unaware of it. He denies abdominal pain nausea vomiting or any other complaint. He appears to be bed ridden but He reports still being able to ambulate on his own. Denies abdominal pain or nausea." Patient transferred from [facility] ED course : Initial BP 144/60, HR 96, afebrile. Initial WBC 16.6. Hemoglobin 14.7. Urinalysis with pyuria. occult Blood from vomitus positive GI consulted ,NG tube inserted but later patient removed it. Reportedly Only 100 ml brown content . Octreotide Given. Protonix Drip Started. Patient did not have any further episode of vomiting in hospital but per ED physician patient had dark matter on arrival CT abdomen shows Distended stomach and prominent proximal small bowel loops. Appearance would suggest possible ileus versus partial small bowel obstruction Patient has a signed POLST which states DNR/DNI comfort care only. do not hospitalize Hospital Course 77 y/o male w/ a hx of hemoptysis, dementia, HTN, and type 2 diabetes presenting to to emergency room due to an episode of vomiting of dark matter # Reported Hematemesis,acute,poa, resolved -NG tube inserted initially for diagnostic purpose in ED and reportedly < 100ml brown to dark matter -possible underlying gastritis - Hgb stayed stable , GI bleed ruled out -as per GI, will manage conservatively given no significant bleeding on NG-tube -Patient has a signed POLST which states DNR/DNI comfort care only. do not hospitalize # Partial small bowel obstruction vs ileus ,acute,poa, resolved -Patient removed NG tube -Abdomen soft ,will start clear liquid diet and advance as tolerated -patient had a bowel movement yesterday, tolerated oral diet without any nausea or vomiting - bowel regimen # Urinary tract infection,acute,poa -WBC trneded down . Urinalysis with pyuria. Urine culture >100,000 GNRs - got ceftriaxone in patient #Depression -Continue Remeron #Dementia -Continue Seroquel ppx:ppi, Dispo: Patient has a signed POLST which states DNR/DNI comfort care only. do not hospitalize discharge to SNF Exam Vital Signs (Last) Date Time Temp Pulse Resp B/P Pulse Ox O2 Delivery O2 Flow Rate FiO2 05/27/17 12:45 36.7 74 18 105/43 95 Room Air Test 05/23/17 03:00 05/23/17 03:50 05/24/17 06:16 05/26/17 05:20 Prothrombin Time 10.8sec (8.1-12.5) Prothromb Time International Ratio 1.01ratio Lipase 49U/L (13-60) Urine Color Yellow (YELLOW) Urine Appearance Cloudy (CLEAR,HAZY) Urine pH 7.0 (5.0-8.0) Urine Specific [place] 1.015 (1.003-1.035) Urine Protein 30mg/dL (NEG,TRACE) Urine Glucose (UA) Negativemg/dL (NEGATIVE) Urine Ketones 15mg/dL (NEGATIVE) Urine Occult Blood Moderate (NEGATIVE) Urine Nitrite Positive (NEGATIVE) Urine Bilirubin Negative (NEGATIVE) Urine Urobilinogen Normalmg/dL (NORMAL) Urine Leukocyte Esterase Large (NEGATIVE) Urine RBC 3-10/hpf (0-2) Urine WBC Packed/hpf (0-5) Urine Epithelial Cells Few/hpf (NONE-MOD) Urine Crystals None seen (NONE SEEN) Urine Bacteria Many/hpf (NONE-FEW) Urine Hyaline Casts None/lpf (NONE) Urine Granular Casts None seen (NONE SEEN) Urine Waxy Casts None seen (NONE SEEN) Urine Red Blood Cell Casts None seen (NONE SEEN) Urine White Blood Cell Casts None seen (NONE SEEN) Urine Mucus None seen (None Seen) Urine Trichomonas None seen (NONE SEEN) Urine Yeast None (NONE SEEN) Urinalysis Comment None Urine Culture Reflexed Indicated Magnesium Level 1.8mg/dL (1.6-2.6) Total Bilirubin 0.8mg/dL (0.0-1.2) Aspartate Amino Transf (AST/SGOT) 13U/L (0-50) Alanine Aminotransferase (ALT/SGPT) 11U/L (0-44) Alkaline Phosphatase 88U/L (25-160) Total Protein 6.5g/dL (6.4-8.4) Albumin 3.6g/dL (3.4-5.0) Prealbumin 17mg/dL (20-40) Test 05/27/17 07:19 White Blood Count 9.2th/mm3 (3.8-10.1) Red Blood Count 3.81mil/mm3 (4.40-5.80) Hemoglobin 12.1g/dL (13.8-17.2) Hematocrit 35.1% (41.0-50.0) Mean Corpuscular Volume 92.1fL (81-100) Mean Corpuscular Hemoglobin 31.8pg (27.0-35.0) Mean Corpuscular Hemoglobin Concent 34.5% (32.0-37.0) Red Cell Distribution Width 12.9% (12.3-15.4) Platelet Count 185bil/L (150-400) Neutrophils (%) (Auto) 60.6% (40-74) Lymphocytes (%) (Auto) 21.1% (14-46) Monocytes (%) (Auto) 8.4% (4-12) Eosinophils (%) (Auto) 9.3% (0-5) Basophils (%) (Auto) 0.2% (0-3) Sodium Level 140mEq/L (134-144) Potassium Level 3.6mEq/L (3.5-5.2) Chloride Level 104mEq/L (97-108) Carbon Dioxide Level 23mmol/L (18-29) Blood Urea Nitrogen 9mg/dL (8-27) Creatinine 0.46mg/dL (0.76-1.27) Estimat Glomerular Filtration Rate 189mL/min (>59) Glucose Level 110mg/dL (60-99) Calcium Level 8.6mg/dL (8.5-10.1) Discharge Medications Discharge Medications ([morphine 20mg/mL]) 5 MG PO TID (Reported) Dextromethorphan HBr/Quinidine (Nuedexta 20-10 mg Capsule) 1 Each Capsule 1 CAPSULE PO BID (Reported) Docusate Sodium (Colace) 100 Mg Capsule 100 MG PO BID (Reported) Mirtazapine (Remeron) 15 Mg Tablet 15 MG PO HS (Reported) Quetiapine Fumarate (Quetiapine Fumarate) 100 Mg Tablet 100 MG PO HS (Reported) Quetiapine Fumarate (Quetiapine Fumarate) 50 Mg Tablet 50 MG PO 1200 (Reported) Quetiapine Fumarate (Quetiapine Fumarate) 50 Mg Tablet 50 MG PO DAILY (Reported ) Sennosides (Senna) 8.6 Mg Tablet 17.2 MG PO BID (Reported) Tamsulosin (Flomax) 0.4 Mg Capsule 0.8 MG PO DAILY (Reported) As needed Polyethylene Glycol 3350 (Miralax) 17 Gm Powd.pack 17 GM PO DAILY PRN PRN For Constipation Prescribed by: TOMMY MARINELLI MD Sennosides (Senna) 8.6 Mg Tablet 17.2 MG PO BID PRN PRN For Constipation Prescribed by: TOMMY MARINELLI MD Additional med instructions Bowel regimen Followup Plan Discharge Diet: No restrictions Follow-up with PCP in: 2 weeks Time spent 35 mins Tommy Marinelli MD May 27, 2017 15:28
== END 2017-05-27 17:45 | DRG 389 ==
LOC: SED 02:23 → EDBD 02:23 → OSC 07:33 → MOC 05-26 22:39
PROVIDERS: ADMIT Internal Medicine; ATTEND Internal Medicine
DX: K56.60 Unspecified intestinal obstruction (principal); N39.0 Urinary tract infection, site not specified; K29.70 Gastritis, unspecified, without bleeding; K56.7 Ileus, unspecified; F03.90 Unspecified dementia, unspecified severity, without behavioral disturbance, psychotic disturbance, mood disturbance, and anxiety; N40.0 Benign prostatic hyperplasia without lower urinary tract symptoms; Z66 Do not resuscitate; F32.9 Major depressive disorder, single episode, unspecified; Z51.5 Encounter for palliative care